=== PATIENT | female | born 1975 | race Caucasian/White ===

== ENCOUNTER → 2016-05-15 | Outpatient (CLI) | payer OTHER ==
[~2016-05-15] MED LIST: ACETTAB14 PO; AMT10 PO; CITA10TA4 PO; ESCI10TA17 PO; GLC/500 PO; IBUP200T80 PO; OXYC5TAB PO; PREG1CAP36 PO; PREG75CA PO
--- NOTE | 2016-05-15 16:06 | DIAGNOSTIC IMAGING REPORT ---
Venous Doppler left leg LEFT VENOUS DOPP LOWER EXT UNILAT CLINICAL HISTORY: ACC LORI PAIN OF LEFT KNEE TECHNIQUE: Venous Doppler COMPARISON STUDY: None FINDINGS: Normal study IMPRESSION: Normal study Electronically signed by: Shay Bell M.D. 05/15/2016 4:05 PM Dictated Date/Time: 05/15/2016 4:04 PM
== END | disposition home or self-care (01) ==
LOC: C.ULTR 15:34
PROVIDERS: ATTEND Orthopaedic Surgery
DX: M25.562 Pain in left knee (principal)

== ENCOUNTER 2016-11-03 03:29 | Emergency (ER) | payer OTHER ==
[~2016-11-03] VITALS: Ht 175.3 cm; Wt 118.3 kg
[~2016-11-03 03:29] MED LIST changes: -IBUP200T80 PO; -PREG1CAP36 PO; -PREG75CA PO
[2016-11-03 03:34] VITALS: TEMP 36.8; Ht 175.3 cm; Wt 118.3 kg
[2016-11-03] MEDS ORDERED: KETOROLAC TROMETHAMINE 60 MG/2 ML VIAL IM STA (03:49)
[2016-11-03] MEDS ORDERED: PREG1CAP36 PO (04:45)
[2016-11-03] MEDS ORDERED: OXYCODONE IR HOME PACK PO ONE (06:45)
--- NOTE | 2016-11-03 07:06 | EMERGENCY ROOM VISIT NOTE ---
History First contact with patient: 03:39 Chief Complaint: LEG PAIN,LEG INJURY Stated Complaint: LEFT LEG PAIN, NERVE DAMAGE FROM PRIOR ACCIDENT History of Present Illness The patient is a 41 year old female who presents to the Emergency Room with complaints of ongoing chronic left leg pain since April 2015 after work- related injury was had surgery before on her back and varicose vein stripping. Patient follows with Dr. Valdivia. Patient was recently placed on Lyrica by the family care for her chronic left leg pain. Patient states the pain has been progressively worse over the past year. Patient states tonight the pain got worse and this is why she came here. Patient tried Advil with no relief of symptoms. She describes the pain as aching, ranging in severity 7 out of 10. Worse with movement and better with rest. No history of DVT or PE. No new trauma. Patient denies chest pain, dyspnea, loss of bowel or bladder control, saddle anesthesia, leg weakness, fevers, chills, abdominal pain, flank pain, urinary symptoms. Patient is able to ambulate. She has an appointment at the end of the month with Dr. Valdivia Review of Systems See HPI for pertinent positives & negatives. A total of 10 systems reviewed and were otherwise negative. Past Medical/Surgical History Medical Problems: (1) Diabetes mellitus (2) Lumbar radiculopathy (3) Lumbar stenosis with neurogenic claudication Surgical Problems: (1) History of lumbar surgery Social History Smoking Status: Former Smoker Drug Use: none Marital Status: Housing Status: lives with family Occupation Status: employed Current/Historical Medications Scheduled Metformin Hcl (Glucophage), 500 MG PO BIDM Pregabalin (Lyrica), 1 CAP PO BID Physical Exam Vital Signs Date Time Temp Pulse Resp B/P (MAP) Pulse Ox O2 Delivery O2 Flow Rate FiO2 11/03/16 06:23 74 18 154/73 95 Room Air 11/03/16 05:40 89 18 160/100 96 Room Air 11/03/16 03:34 36.8 90 18 165/104 95 Room Air Physical Exam VITALS: Vitals are noted on the nurse's note and reviewed by myself. Vital signs stable. GENERAL: Pleasant female, in no acute distress, nondiaphoretic, well-developed well-nourished. SKIN: Capillary reflex less than 2 seconds. HEENT: Normocephalic. PERRLA. EOMI. Nares patent. Mucous membranes moist. Neck is supple without nuchal rigidity. HEART: Regular rate and rhythm without murmurs gallops or rubs. LUNGS: Clear to auscultation bilaterally without wheezes, rales or rhonchi. No retractions or accessory muscle use. ABDOMEN: Positive bowel sounds x 4. Normal tympanic percussion. Soft, nontender, without masses or organomegaly. Holly sign negative. No guarding or rebound tenderness. MUSCULOSKELETAL: No gross musculoskeletal defects. No pedal edema. Left calf tenderness. No thoracic or lumbar tenderness on exam, negative straight leg raise, 5 out of 5 strength throughout NEURO: Patient was alert and oriented to person place and time. Normal sensation to light and sharp touch. Deep tendon reflexes 2+ patella bilaterally. No focal neurological deficits. Medical Decision & Procedures Medications Administered Medications (Trade) Dose Ordered Sig/Juan M Route Start Time Stop Time Status Last Admin Dose Admin Ketorolac Tromethamine (Toradol Inj) 60 mg NOW STAT IM 11/03/16 03:49 11/03/16 03:50 DC 11/03/16 03:55 60 MG ED Course Prior records reviewed and summarized above. Triage Nursing notes reviewed. The patient's history was concerning for swelling and pain in the leg. Differential diagnosis: Etiologies such as acute on chronic leg pain, DVT, musculoskeletal, infection, joint effusion, trauma, lymphedema, idiopathic, CHF, as well as others were entertained.. Physical examination: The physical examination revealed no signs of infection. Neurovascularly intact. ER treatment provided: Toradol On reassessment the patient felt better. Diagnostics interpreted by me: Imaging studies: US no DVT This appears to be consistent with acute on chronic left leg pain. Patient was neurovascularly and neurologically intact. She is well-appearing. She is able to ambulate without difficulties. Case management will help facilitate an earlier appointment for her to follow-up with orthopedic spine. She is advised follow-up family care in a few days or here in the ER sooner for severe pain, numbness, tingling, inability to walk, worsening signs or symptoms or as needed. By the evaluation outlined above emergent etiologies such as DVT, septic joint, trauma, infection, CHF, as well as others were deemed relatively unlikely. The pt informed about the findings as listed above. All questions were answered and pleased with the treatment. Return instructions were outlined and the patient was discharged in stable condition. Referral: The patient was referred back to their primary care physician for follow-up in 2 to 3 days for a recheck of the current condition. Medical Decision As above Medication Reconcilliation Current Medication List: was personally reviewed by me Blood Pressure Screening Patient's blood pressure: Elevated blood pressure Blood pressure disposition: Elevated BP felt to be situational Impression Primary Impression: Leg pain, left Departure Information Dispostion Home / Self-Care Condition GOOD Referrals Finn Bolden D.O. (PCP) Patient Instructions My [facility] Additional Instructions Your blood pressure was high today. Follow-up with your family care. Oxycodone (OxyIR) 5mg: Take 1-2 pills every four hours for breakthrough pain. Avoid alcohol, operating machinery or dangerous equipment, working on ladders or roofs, DRIVING, or situations where being under the influence may be dangerous. It is recommended to use an [id number] stool softener such as Colace, 100mg twice daily while taking this medication to avoid constipation. Ibuprofen(Motrin, Advil) may be used for fever or pain. Use 600mg every six hours as needed. Take with food. Avoid using more than 2400mg in a 24 hour period. Do not use 2400mg per day for more than three consecutive days without physician direction. Prolonged inappropriate use can lead to stomach upset or ulcers. This medication can be taken if you need to drive, work, or perform activities which may be dangerous when taking narcotic pain medication. (AND/OR) Acetaminophen(Tylenol) may be used for fever or pain. Use 1000mg every six hours as needed. Avoid using more than 3000mg in a 24 hour period. This medication can be taken if you need to drive, work, or perform activities which may be dangerous when taking narcotic pain medication. Rest and elevate your leg Continue current medications. Return to the ER immediately for any fevers, inability to walk, numbness, tingling, severe pain, extreme swelling in the extremity or as needed. Follow up with your orthopedic spine doctor in 2-3 days, call for an appointment. Case management will help facilitate an earlier appointment.
--- NOTE | 2016-11-03 07:09 | DIAGNOSTIC IMAGING REPORT ---
ULTRASOUND LEFT LOWER EXTREMITY VENOUS CLINICAL HISTORY: Chronic left leg pain. COMPARISON STUDY: Left lower extremity venous ultrasound dated 05/15/2016. TECHNIQUE: Real-time, grayscale, and color Doppler sonography of the deep veins of the left lower extremity was performed from the inguinal crease to the calf. Compression and augmentation were utilized. FINDINGS: There is no sonographic evidence of deep venous thrombosis identified in the left lower extremity. The common femoral, superficial femoral, and popliteal veins are patent and normally compressible. The greater saphenous vein and the profunda femoris vein at the junction with the common femoral vein are clear. The visualized calf veins are patent. IMPRESSION: There is no sonographic evidence of deep venous thrombosis identified in the left lower extremity. Electronically signed by: Juno Gold M.D. 11/03/2016 7:07 AM Dictated Date/Time: 11/03/2016 7:07 AM
[2016-11-03 07:29] VITALS: BP 156/83; PULSE 76; O2SAT 97
== END 2016-11-03 07:39 | disposition home or self-care (01) ==
LOC: C.EDB 03:31 → C.EDA 07:39
DX: M79.605 Pain in left leg (principal); E11.9 Type 2 diabetes mellitus without complications; M54.16 Radiculopathy, lumbar region; Z98.890 Other specified postprocedural states

== ENCOUNTER 2016-11-14 12:20 | Emergency (ER) | payer OTHER ==
[~2016-11-14] VITALS: Ht 175.3 cm; Wt 116.5 kg
[~2016-11-14 12:20] MED LIST changes: -ACETTAB14 PO; -AMT10 PO; -CITA10TA4 PO; -ESCI10TA17 PO; -OXYC5TAB PO; +PREG1CAP36 PO
[2016-11-14 12:23] VITALS: TEMP 36.9; Ht 175.3 cm; Wt 116.5 kg
--- NOTE | 2016-11-14 12:55 | EMERGENCY ROOM VISIT NOTE ---
History Report prepared by [place]: Marly Noel Under the Supervision of: Dr. Marvin Hein M.D. First contact with patient: 12:32 Chief Complaint: KNEEPAIN Stated Complaint: PAIN IN L KNEE History of Present Illness The patient is a 41 year old female who presents to the Emergency Room with complaints of persistent, worsening left knee pain that began one week ago. She currently rates her discomfort as a 5/10 in severity. The patient states that she saw her PCP today for her knee pain and after her PCP pressed on her leg, she became concerned for a DVT. The patient denies any history of a DVT, but does note a possible family history of dvt. She denies any chance of . The patient denies any recent surgery or recent travel by plan. She does note that she had a long car ride in August. The patient states that her pain began as an ache, noting that it has slowly worsened. She denies getting any x-ray prior to arrival today. 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 The patient denies any injury. She reports chronic back pain and nerve damage from her chronic back issues. Source of History: patient Onset: one week ago Position: knee (left) Symptom Intensity: 5/10 Quality: ache Timing: worsening, other (persistent) Associated Symptoms: + back pain (chronic) Review of Systems See HPI for pertinent positives and negatives. A total of ten systems were reviewed and were otherwise negative. Past Medical & Surgical Medical Problems: (1) Diabetes mellitus (2) Lumbar radiculopathy (3) Lumbar stenosis with neurogenic claudication Surgical Problems: (1) History of lumbar surgery Family History Cancer Diabetes mellitus Hypertension Social History Smoking Status: Former Smoker Smokeless Tobacco Use: No Alcohol Use: none Drug Use: none Marital Status: Housing Status: lives with family Occupation Status: employed Current/Historical Medications Scheduled Metformin Hcl (Glucophage), 500 MG PO BIDM Pregabalin (Lyrica), 75 MG PO BID Scheduled PRN Acetaminophen-Caffeine (Excedrin Tension Headache), 2 TAB PO WK PRN for Pain Ibuprofen (Ibu-200), 2 TAB PO QID PRN for Pain Allergies Coded Allergies: Cephalosporins (Verified Allergy, Intermediate, HIVES, 11/14/16) Amoxicillin (Verified Allergy, Unknown, itching, 11/14/16) Clavulanic Acid (Verified Allergy, Unknown, itching, 11/14/16) Uncoded Allergies: Curare (Adverse Reaction, Unknown, Ineffective- pt awoke during surgery , ) Physical Exam Vital Signs Date Time Temp Pulse Resp B/P (MAP) Pulse Ox O2 Delivery O2 Flow Rate FiO2 11/14/16 15:19 66 17 164/78 98 11/14/16 14:22 66 18 165/81 97 Room Air 11/14/16 12:23 36.9 75 20 171/102 98 Room Air Physical Exam GENERAL: Awake, alert, well-appearing, in no distress HENT: Normocephalic, atraumatic. Oropharynx unremarkable. EYES: Normal conjunctiva. Sclera non-icteric. NECK: Supple. No nuchal rigidity. FROM. No JVD. RESPIRATORY: Clear to auscultation. CARDIAC: Regular rate, normal rhythm. Extremities warm and well perfused. Pulses equal. ABDOMEN: Soft, non-distended. No tenderness to palpation. No rebound or guarding. No masses. RECTAL: Deferred. MUSCULOSKELETAL: Chest examination reveals no tenderness. The back is symmetrical on inspection without obvious abnormality. There is no CVA tenderness to palpation. No joint edema. LOWER EXTREMITIES: Bilateral extremities are symmetric in size, no gross swelling anteriorly in knee, mild tenderness in the posterior aspect of the proximal calf, popliteal fossa, and distal upper leg. NEURO: Normal sensorium. No sensory or motor deficits noted. SKIN: No rash or jaundice noted. Medical Decision & Procedures ER Provider Diagnostic Interpretation: Radiology results as stated below per my review and radiologist interpretation: LEFT KNEE 3 VIEWS CLINICAL HISTORY: pain COMPARISON: None. DISCUSSION: No fractures or dislocations are visualized. There are minor degenerative changes present. There are multiple superficial soft varicosities. IMPRESSION: 1. Minor degenerative change 2. No evidence of fracture 3. Multiple varicosities Electronically signed by: Jacob Hicks M.D. 11/14/2016 1:12 PM Dictated Date/Time: 11/14/2016 1:12 PM ULTRASOUND LEFT VENOUS DOPP LOWER EXT UNILAT CLINICAL HISTORY: Left leg pain and swelling COMPARISON STUDY: May 15, 2016 FINDINGS: Real-time and color flow Doppler imaging were performed. Flow was seen within the femoral, popliteal and calf veins with no intraluminal thrombus demonstrated. The saphenous vein is patent. IMPRESSION: No evidence of left lower extremity DVT Electronically signed by: Jacob Hicks M.D. 11/14/2016 2:15 PM Dictated Date/Time: 11/14/2016 2:14 PM Medications Administered Medications (Trade) Dose Ordered Sig/Juan M Route Start Time Stop Time Status Last Admin Dose Admin Ibuprofen (Motrin Tab) 800 mg STK-MED ONCE .ROUTE 11/14/16 13:40 11/14/16 13:41 DC 11/14/16 13:42 800 MG ED Course 1244: The patient was evaluated in room A10. A complete history and physical exam was performed. 1340: Ordered Motrin Tab 800 mg .route. Medical Decision I reviewed the patient's past medical history, medications, and the nursing notes as described above. The patient's presentation and history were concerning for Knee sprain, strain, fracture. Meniscal injury, DVT, chronic neuropathy. Patient is a 41 y/o woman with a pmhx of neuropathy in the setting of spine surgery presents to ED with >1 week of left knee pain, seen by pcp who sent for duplex concerned for possible DVT. Arrives well-appearing, AFVSS. Mild ttp posterior LLE. BLE symmetric. Xray negative for fx. Duplex negative for dvt. Findings and plan for follow-up d/w patient. Patient agreeable and d/c'd per discharge instructions. Medication Reconcilliation Current Medication List: was personally reviewed by me Blood Pressure Screening Patient's blood pressure: Elevated blood pressure Blood pressure disposition: Elevated BP felt to be situational, Did not require urgent referral Impression Primary Impression: Knee pain Scribe Attestation The scribe's documentation has been prepared under my direction and personally reviewed by me in its entirety. I confirm that the note above accurately reflects all work, treatment, procedures, and medical decision making performed by me. Departure Information Dispostion Home / Self-Care Referrals Finn Bolden, D.O. (PCP) Patient Instructions Knee Pain, My [facility] Additional Instructions Please follow up with your primary care physician in the next 1-3 days for re- evaluation. Your exam, xray, and ultrasound did not show signs of an emergent condition at this time. Acetaminophen or ibuprofen for pain as needed. Return to the emergency department for worsening symptoms as described in the accompanying instructions.
[2016-11-14] MEDS ORDERED: PREG75CA PO (12:58)
[2016-11-14] MEDS ORDERED: ACETTAB14 PO (12:58)
[2016-11-14] MEDS ORDERED: IBUP200T80 PO (12:58)
--- NOTE | 2016-11-14 13:14 | DIAGNOSTIC IMAGING REPORT ---
LEFT KNEE 3 VIEWS CLINICAL HISTORY: pain COMPARISON: None. DISCUSSION: No fractures or dislocations are visualized. There are minor degenerative changes present. There are multiple superficial soft varicosities. IMPRESSION: 1. Minor degenerative change 2. No evidence of fracture 3. Multiple varicosities Electronically signed by: Jacob Hicks M.D. 11/14/2016 1:12 PM Dictated Date/Time: 11/14/2016 1:12 PM
[2016-11-14] MEDS ORDERED: IBUPROFEN 800 MG TAB ONE (13:40)
--- NOTE | 2016-11-14 14:16 | DIAGNOSTIC IMAGING REPORT ---
ULTRASOUND LEFT VENOUS DOPP LOWER EXT UNILAT CLINICAL HISTORY: Left leg pain and swelling COMPARISON STUDY: May 15, 2016 FINDINGS: Real-time and color flow Doppler imaging were performed. Flow was seen within the femoral, popliteal and calf veins with no intraluminal thrombus demonstrated. The saphenous vein is patent. IMPRESSION: No evidence of left lower extremity DVT Electronically signed by: Jacob Hicks M.D. 11/14/2016 2:15 PM Dictated Date/Time: 11/14/2016 2:14 PM
[2016-11-14 15:19] VITALS: BP 164/78; PULSE 66; O2SAT 98
== END 2016-11-14 15:18 | disposition home or self-care (01) ==
LOC: C.EDB 12:21 → C.EDA 15:18
DX: M25.562 Pain in left knee (principal); M54.16 Radiculopathy, lumbar region; G89.29 Other chronic pain; E11.9 Type 2 diabetes mellitus without complications; M48.06 Spinal stenosis, lumbar region; Z87.891 Personal history of nicotine dependence; Z79.84 Long term (current) use of oral hypoglycemic drugs; Z83.3 Family history of diabetes mellitus; Z82.49 Family history of ischemic heart disease and other diseases of the circulatory system

== ENCOUNTER → 2017-02-01 | Day surgery (SDC) | payer OTHER ==
[2017-01-07 15:16] VITALS: BMI 36.0
--- NOTE | 2017-01-07 15:52 | PAT Medication Instructions ---
Service Date Jan 07, 2017. Current Home Medication List Acetaminophen-Caffeine (Excedrin Tension Headache), 2 TAB PO WK PRN for Pain Cetirizine (Zyrtec), 10 MG PO PRN Ibuprofen (Motrin), 800 MG PO PRN PRN for Pain Loperamide Hcl (Imodium), 2 MG PO UD PRN for RN Metformin Hcl (Glucophage), 500 MG PO BIDM Norgestimate-Ethinyl Estradiol (Mononessa), 1 TAB PO QPM Pregabalin (Lyrica), 75 MG PO BID Propranolol (Inderal), 40 MG PO BID Rizatriptan Benzoate (Rizatriptan Benzoate), 5 MG PO UD PRN for RN [Lactaid], 1 TAB PO PRN Medication Instructions For Your Scheduled Surgery - Check with surgeon for instructions: Norgestimate-Ethinyl Estradiol (Mononessa), 1 TAB PO QPM Ibuprofen (Motrin), 800 MG PO PRN PRN for Pain Acetaminophen-Caffeine (Excedrin Tension Headache), 2 TAB PO WK PRN for Pain - Hold the following medications 48 hours prior to surgery: Metformin Hcl (Glucophage), 500 MG PO BIDM - Hold the following medications the morning of surgery: [Lactaid], 1 TAB PO PRN Loperamide Hcl (Imodium), 2 MG PO UD PRN for RN Cetirizine (Zyrtec), 10 MG PO PRN - Take the following medications the morning of surgery with a sip of water: Rizatriptan Benzoate (Rizatriptan Benzoate), 5 MG PO UD PRN for RN (if needed) Propranolol (Inderal), 40 MG PO BID Pregabalin (Lyrica), 75 MG PO BID - Take the following medications as scheduled the night before surgery: [Lactaid], 1 TAB PO PRN(if needed) Rizatriptan Benzoate (Rizatriptan Benzoate), 5 MG PO UD PRN for RN(if needed) Propranolol (Inderal), 40 MG PO BID Pregabalin (Lyrica), 75 MG PO BID Loperamide Hcl (Imodium), 2 MG PO UD PRN for RN(if needed) Cetirizine (Zyrtec), 10 MG PO PRN(if needed) If you have any questions please call us at [phone] or [phone] or [phone]
[2017-01-07 16:04] LABS: BASO % 0.2 %; BASO ABS # 0.02 K/uL (0-0.2); COMPLETE YES; EOS % 1.7 %; HEMATOCRIT 39.8 % (37-47); IG% 0.2 %; LYMPH % 22.2 %; LYMPH ABS # 2.26 K/uL (1.2-3.4); MEAN CELL VOLUME 86.7 fL (80-100); MEAN CORPUSCULAR HEMOGLOBIN 28.1 pg (25-34); MEAN CORPUSCULAR HGB CONC 32.4 g/dl (32-36); MEAN PLATELET VOLUME 8.9 fL (7.4-10.4); MONO % 7.3 %; NEUT % 68.4 %; PLATELET COUNT 290 K/uL (130-400); RED BLOOD COUNT 4.59 M/uL (4.2-5.4); WHITE BLOOD COUNT 10.19 K/uL (4.8-10.8)
--- NOTE | 2017-01-07 16:22 | DIAGNOSTIC IMAGING REPORT ---
CHEST 2 VIEWS ROUTINE HISTORY: Preop. COMPARISON: Chest 09/10/2015. FINDINGS: The lungs are clear. Cardiac silhouette is normal in size. No pleural effusions. No pneumothorax. IMPRESSION: No acute process. Electronically signed by: Zac Herbert M.D. 01/07/2017 4:21 PM Dictated Date/Time: 01/07/2017 4:21 PM
[2017-01-07 16:33] LABS: URINE APPEARANCE CLEAR (CLEAR); URINE BILIRUBIN NEG (NEG); URINE COLOR DK YELLOW; URINE NITRITE NEG (NEG); URINE SPECIFIC GRAVITY 1.029 (1.000-1.030); UROBILINOGEN NEG (NEG); ZZUR CULT IF INDIC CLEAN CATCH NO
[2017-01-07 16:36] LABS: MANUAL MICROSCOPIC REQUIRED? NO; REVIEW REQ? NO
[2017-01-07 16:40] LABS: BUN/CREATININE RATIO 17.3 (10-20); CALCIUM 8.7 mg/dl (8.5-10.1); CREATININE 0.75 mg/dl (0.60-1.20); POTASSIUM 4.2 mmol/L (3.5-5.1)
[~2017-02-01] VITALS: Ht 175.3 cm; Wt 112.4 kg
[~2017-02-01] MED LIST changes: +ACETAMINOPHEN 325 MG TAB PO PRN; +ACETTAB15 PO; +ATROPINE SULFATE 0.1 MG/ML 5ML SYR IV PRN; +BUPIVACAINE/EPINEPHRINE 0.5% MPF 1:200,000 30 ML VIAL ONE; +CETI10TA84 PO; +CLIN300C2 PO; +CLINDAMYCIN 600 MG/54 ML D5W IV SCH; +DEXAMETHASONE SOD INJ 4 MG/ML VIAL ONE; +EpHEDrine SULFATE INJ 50 MG/ML AMP IV PRN; +FENTANYL CITRATE INJ 50 MCG/1 ML 2 ML VIAL IV PRN; +FENTANYL CITRATE INJ 50 MCG/1 ML 2 ML VIAL ONE; +FLOSEAL HEMOSTATIC MATRIX 5ML TOP ONE; +GLYCOPYRROLATE INJ 0.2 MG/ML VIAL ONE; +HYDROmorphone INJ 2 MG/ML SYR/VIAL ONE; +IBUP-1428 PO; +IMD/2 PO; +KETOROLAC TROMETHAMINE 30 MG/ML VIAL IV. PRN; +KETOROLAC TROMETHAMINE 30 MG/ML VIAL ONE; +LACTAID PO; +LACTATED RINGER'S 1000ML IV SCH; +LIDOCAINE HCL 2% 2 ML VIAL (20MG/ML) ONE; +MIDAZOLAM HCL 1 MG/ML 2ML VIAL ONE; +NEOSTIGMINE METHYLSULFATE 1 MG/ML 10ML VIAL ONE; +NORGTAB10 PO; +ONDANSETRON INJ 2 MG/ML 2 ML VIAL IV PRN; +ONDANSETRON INJ 2 MG/ML 2 ML VIAL ONE; +OXYC-57 PO; +OXYCODONE HCL IR 5 MG TAB (IMMEDIATE RELEASE) PO PRN; -PREG1CAP36 PO; +PREG75CA PO; +PROP20TA67 PO; +PROPOFOL IV EMULSION 10 MG/ML 20 ML VIAL IV ONE; +RIZA1TAB10 PO; +ROCURONIUM BROMIDE 10 MG/ML 5 ML VIAL IV ONE
[2017-02-01 06:30] VITALS: BP 176/81; PULSE 66; TEMP 37; O2SAT 96; Ht 175.3 cm; Wt 112.4 kg
--- NOTE | 2017-02-01 07:28 | History & Physical Bridge Note ---
H&P Re-Evaluation Bridge Note: I have examined the patient, reviewed the History & Physical and in the interval since the performance of the History & Physical I have noted the following changes of clinical significance: No changes noted
--- NOTE | 2017-02-01 07:29 | History and Physical ---
History & Physical Date Feb 01, 2017. Chief Complaint Back and leg pain History of Present Illness The patient is a 41 year old female with complaints of chronic back and leg pain Past Medical/Surgical History Medical Problems: (1) Diabetes mellitus (2) Lumbar radiculopathy (3) Lumbar stenosis with neurogenic claudication Surgical Problems: (1) History of lumbar surgery Additional History Hepatic Disease: No Endocrine Disorder: No Kidney Disease: No Hypertension: Yes Heart Disease: No Bleeding Tendencies: No Infectious Diseases: No Allergies Coded Allergies: Cephalosporins (Verified Allergy, Intermediate, HIVES, 01/07/17) Amoxicillin (Verified Allergy, Unknown, itching, 01/07/17) Clavulanic Acid (Verified Allergy, Unknown, itching, 01/07/17) Latex1 -Allergic Contact Dermititis (Verified Allergy, Unknown, SKIN CRACKS, 01/07/17) Hydromorphone (Verified Adverse Reaction, Unknown, PAIN, NAUSEA, MOTION SICKNESS, 02/01/17) PER RECORDS Unclassified Drugs (Verified Adverse Reaction, Unknown, CURARE, 02/01/17) DID NOT WORK Home Medications Scheduled Cetirizine (Zyrtec), 10 MG PO PRN Metformin Hcl (Glucophage), 500 MG PO BIDM Norgestimate-Ethinyl Estradiol (Mononessa), 1 TAB PO QPM Pregabalin (Lyrica), 75 MG PO BID Propranolol (Inderal), 40 MG PO BID [Lactaid], 1 TAB PO PRN Scheduled PRN Acetaminophen-Caffeine (Excedrin Tension Headache), 2 TAB PO WK PRN for Pain Ibuprofen (Motrin), 800 MG PO PRN PRN for Pain Loperamide Hcl (Imodium), 2 MG PO UD PRN for RN Rizatriptan Benzoate (Rizatriptan Benzoate), 5 MG PO UD PRN for RN Physical Examination Skin: warm/dry, no rash Eyes: normal inspection, EOMI, sclerae normal ENT: normal ENT inspection, pharynx normal Head: normocephalic, atraumatic Neck: supple, no adenopathy, trachea midline Respiratory/Chest: lungs clear, normal breath sounds, no respiratory distress Cardiovascular: regular rate, rhythm, no edema, no murmur Abdomen / GI: normal bowel sounds, non tender Back: normal inspection Extremities: normal inspection, normal range of motion Neurologic/Psych: no motor/sensory deficits, alert, normal reflexes, oriented x 3 Diagnosis Chronic back and leg pain Plan of Treatment Spinal cord stimulator trial
[2017-02-01] MEDS: BACITRACIN 50000 UNIT VIAL ONE ×2 (08:13→08:37)
--- NOTE | 2017-02-01 08:45 | Discharge Instructions ---
Discharge Instructions Date of Service Feb 01, 2017. Admission Reason for Admission: Lumbar Post-Laminectomy Syndrome Discharge Discharge Diagnosis / Problem: chronic back and leg pain Discharge Goals Goal(s): Decrease discomfort Activity Recommendations Activity Limitations: per Instructions/Follow-up section Shower/Bathe: keep incision dry . Instructions / Follow-Up Instructions / Follow-Up ACTIVITY RECOMMENDATIONS: SELF CARE INSTRUCTIONS AFTER A LAMINECTOMY 1. No prolonged sitting (less than 30 minutes for the first 3 weeks after surgery). 2. No bending, lifting more than 5 pounds, or twisting (roll like a log when turning in bed). 3. You may shower 3 days after surgery if no drainage from wound. Thoroughly dry wound. Do not soak in the tub. 4. Please walk as much as you can for exercise. Gradually increase the distance that you walk as your endurance increases. 5. You may drive in 7-10 days if you are comfortable and no longer requiring pain medications. SPECIAL CARE INSTRUCTIONS: VERY IMPORTANT TO READ AND REVIEW A. Your surgical incision has been closed with a cosmetic suture under the skin that will dissolve in about 6 weeks. In 14 days, you can use a pair of clean scissors and cut the suture that is left outside of the skin at the ends of your incision. B. Complications are uncommon, but please contact us if you have any signs or symptoms of: 1. wound infection (fever higher than 102.5 degrees F, redness, separation of wound, drainage, or increasing pain from the incision) 2. blood clots in legs (pain, swelling, redness and warmth in legs) 3. urinary tract infection (fever higher than 102.5 degrees, burning upon urination or increased frequency of urination) 4. nerve problems (inability to walk on your toes or heels, numbness, loss of bowel or bladder control) 5. any other symptoms that concern you. C. Please call the office at if you have any concerns or questions about your operation or recovery. MANAGING PAIN AFTER SPINAL SURGERY 1. Narcotic medication is intended for short-term use and will be provided for surgical pain. Surgical pain usually lasts for a period of 4-6 weeks. Narcotic medication includes Percocet, Vicodin, Darvocet, Tylenol #3 or Lortab. 2. Longer-term pain is more appropriately treated with non-narcotic medication such as Tylenol ES. 3. Muscle spasm is not appropriately treated with narcotics. Muscle relaxers such as Soma, Flexeril or Skelaxin can be used along with Tylenol ES. 4. Remember that we all live with some "aches and pains". This is not unusual or uncommon after an injury or as we get older. 5. We will provide appropriate medication within the normal guidelines of their prescribed use. We will also be very cautious and aware of potential abuse and extended duration of patients' medication needs. 6. Please allow 2-3 days to process refills. Prescriptions will not be mailed but must be picked up at the office. FOLLOW UP VISIT: Keep your scheduled follow-up appointment. Any questions, please call the office at . Current Hospital Diet Patient's current hospital diet: Discharge Diet Recommended Diet: Regular Diet Procedures Procedures Performed: Spinal Cord Stimulator Trial Pending Studies Studies pending at discharge: no Medical Emergencies . Who to Call and When: Medical Emergencies: If at any time you feel your situation is an emergency, please call 911 immediately. . Non-Emergent Contact Non-Emergency issues call your: Primary Care Provider . "Provider Documentation" section prepared by Adarsh Valdivia. . VTE Core Measure Inpt VTE Proph given/why not?: Lisa Pelaez, SCD's
--- NOTE | 2017-02-01 08:58 | DIAGNOSTIC IMAGING REPORT ---
SPINE ONE VIEW, ANY LEVEL HISTORY: 41 years-old Female SPINAL CORD STIMULATOR TRIAL status post placement of a spinal study Or device COMPARISON: Lumbar spine MR 12/18/2015 TECHNIQUE: Single spot fluoroscopic image of the spine was obtained utilizing 4.6 seconds fluoroscopy time FINDINGS: Stimulator leads are noted overlying the central spine with distal tip at approximately the T8-T9 level. Exact placement of leads should be confirmed with follow-up standard radiographs. Metallic devices are noted overlying the paraspinal regions bilaterally. IMPRESSION: Fluoroscopic assistance as above. Please see procedural report for further details. The above report was generated using voice recognition software. It may contain grammatical, syntax or spelling errors. Electronically signed by: Beny Momin M.D. 02/01/2017 8:57 AM Dictated Date/Time: 02/01/2017 8:55 AM
--- NOTE | 2017-02-01 09:14 | [facility] Operative Report ---
Operative Report Operative Date Feb 01, 2017. Pre-Operative Diagnosis Lumbar Post-Laminectomy Syndrome Post-Operative Diagnosis Same as preoperative Procedure(s) Performed #1 T10 laminotomy. #2 placement of 16-lead dorsal column stimulator paddle with temporary external leads. Surgeon Dr. Adarsh Valdivia [employer] Surgeon(s) Liberty Gomez PA-C Estimated Blood Loss 25ML Findings None Specimens None per surgeon Description of Procedure Patient was met with preoperatively case discussed all questions addressed. After informed consent obtained patient was taken to the operative suite underwent intubation placed in a prone position the Brice table on top Omega frame. All bony prominences well-padded eyes inspected to ensure no external pressure placed upon them. This point the thoracal lumbar spine was prepped and draped nostril fashion. With the assistance of fluoroscopy identified the T10 T 11 disc space. A midline incision was performed onto an exposing the interlaminar space. Cefotan retractors placed. Verified a position fluoroscopy. At T10 laminotomy was then performed a wide enough to place a 16- lead dorsal constant later paddle. This was inserted up to the bottom of T8. Verified our position with fluoroscopy. I then attached the temporary leads internal them to the right flank. The incisions were irrigated closed with subcutaneous Vicryl and Monocryl for final skin closure. Sterile dressing was placed. Patient we can take PACU stable condition. Please note Liberty Kirk was present at the entire procedure involved in patient positioning complex portions of the surgery and final skin closure. I attest to the content of the Intraoperative Record and any orders documented therein. Any exceptions are noted below.
--- NOTE | 2017-02-01 09:47 | Anesthesiology Progress Note ---
Anesthesia Post Op Note Date & Time Feb 01, 2017 at 09:47 Vital Signs Pain Intensity: 0 Vital Signs Past 12 Hours Date Time Temp Pulse Resp B/P (MAP) Pulse Ox O2 Delivery O2 Flow Rate FiO2 02/01/17 09:30 36.5 73 16 134/67 100 Nasal Cannula 2 02/01/17 09:20 72 16 152/88 100 Nasal Cannula 2 02/01/17 09:10 68 16 166/74 100 Oxymask 5 02/01/17 09:00 78 16 171/87 100 Oxymask 10 02/01/17 08:50 36.6 83 14 165/87 98 Oxymask 10 02/01/17 06:30 37 66 20 176/81 (112) 96 Room Air Notes Mental Status: alert / awake / arousable, participated in evaluation Pt Amnestic to Procedure: Yes Nausea / Vomiting: adequately controlled Pain: adequately controlled Airway Patency, RR, SpO2: stable & adequate BP & HR: stable & adequate Hydration State: stable & adequate Anesthetic Complications: no major complications apparent
[2017-02-01 10:40] VITALS: BP 156/77; PULSE 83; TEMP 36.5; O2SAT 96
== END | disposition home or self-care (01) ==
LOC: C.ACU 05:56
PROVIDERS: ATTEND Orthopaedic Surgery Orthopaedic Surgery of the Spine
DX: M96.1 Postlaminectomy syndrome, not elsewhere classified (principal); E11.9 Type 2 diabetes mellitus without complications; Z79.84 Long term (current) use of oral hypoglycemic drugs; Z79.899 Other long term (current) drug therapy

== ENCOUNTER 2017-02-12 06:53 | Day surgery (SDC) | payer OTHER ==
[~2017-02-12] VITALS: Ht 175.3 cm; Wt 110.0 kg
[~2017-02-12 06:53] MED LIST changes: -ACETAMINOPHEN 325 MG TAB PO PRN; -ATROPINE SULFATE 0.1 MG/ML 5ML SYR IV PRN; -BUPIVACAINE/EPINEPHRINE 0.5% MPF 1:200,000 30 ML VIAL ONE; -CLIN300C2 PO; -DEXAMETHASONE SOD INJ 4 MG/ML VIAL ONE; -EpHEDrine SULFATE INJ 50 MG/ML AMP IV PRN; -FENTANYL CITRATE INJ 50 MCG/1 ML 2 ML VIAL IV PRN; -FENTANYL CITRATE INJ 50 MCG/1 ML 2 ML VIAL ONE; -FLOSEAL HEMOSTATIC MATRIX 5ML TOP ONE; -GLYCOPYRROLATE INJ 0.2 MG/ML VIAL ONE; -HYDROmorphone INJ 2 MG/ML SYR/VIAL ONE; -KETOROLAC TROMETHAMINE 30 MG/ML VIAL IV. PRN; -KETOROLAC TROMETHAMINE 30 MG/ML VIAL ONE; +LACTATED RINGER'S 1000ML 1,000 ML IV SCH; -LACTATED RINGER'S 1000ML IV SCH; -LIDOCAINE HCL 2% 2 ML VIAL (20MG/ML) ONE; -MIDAZOLAM HCL 1 MG/ML 2ML VIAL ONE; -NEOSTIGMINE METHYLSULFATE 1 MG/ML 10ML VIAL ONE; -ONDANSETRON INJ 2 MG/ML 2 ML VIAL IV PRN; -ONDANSETRON INJ 2 MG/ML 2 ML VIAL ONE; -OXYCODONE HCL IR 5 MG TAB (IMMEDIATE RELEASE) PO PRN; -PROPOFOL IV EMULSION 10 MG/ML 20 ML VIAL IV ONE; -ROCURONIUM BROMIDE 10 MG/ML 5 ML VIAL IV ONE
[2017-02-12] MEDS ORDERED: OXYC-57 PO (07:50)
[2017-02-12 07:53] VITALS: BP 145/75; PULSE 63; TEMP 36.5; O2SAT 97; Ht 175.3 cm; Wt 110.0 kg
[2017-02-12] MEDS ORDERED: ATROPINE SULFATE 0.1 MG/ML 5ML SYR IV PRN (08:15)
[2017-02-12] MEDS ORDERED: ONDANSETRON INJ 2 MG/ML 2 ML VIAL IV PRN (08:15)
[2017-02-12] MEDS ORDERED: PROMETHAZINE HCL INJ 12.5 MG in SODIUM CHLORIDE 0.9% 50ML 50 ML IV PRN (08:15)
[2017-02-12] MEDS ORDERED: EpHEDrine SULFATE INJ 50 MG/ML AMP IV PRN (08:15)
[2017-02-12] MEDS ORDERED: FENTANYL CITRATE INJ 50 MCG/1 ML 2 ML VIAL IV PRN (08:15)
[2017-02-12] MEDS ORDERED: HYDROmorphone INJ 1 MG/ML SYR IV PRN (08:15)
[2017-02-12] MEDS ORDERED: FENTANYL CITRATE INJ 50 MCG/1 ML 2 ML VIAL ONE ×2 (08:17→09:34)
[2017-02-12] MEDS ORDERED: MIDAZOLAM HCL 1 MG/ML 2ML VIAL ONE (08:17)
--- NOTE | 2017-02-12 08:36 | History and Physical ---
History & Physical Date Feb 12, 2017. Chief Complaint Chronic back and leg pain History of Present Illness The patient is a 41 year old female with complaints of chronic back and leg pain Past Medical/Surgical History Medical Problems: (1) Diabetes mellitus (2) Lumbar radiculopathy (3) Lumbar stenosis with neurogenic claudication Surgical Problems: (1) History of lumbar surgery Additional History Hepatic Disease: No Endocrine Disorder: No Kidney Disease: No Hypertension: No Heart Disease: No Bleeding Tendencies: No Infectious Diseases: No Allergies Coded Allergies: Cephalosporins (Verified Allergy, Intermediate, HIVES, 02/12/17) Amoxicillin (Verified Allergy, Unknown, itching, 02/12/17) Clavulanic Acid (Verified Allergy, Unknown, itching, 02/12/17) Latex1 -Allergic Contact Dermititis (Verified Allergy, Unknown, SKIN CRACKS, 02/12/17) Hydromorphone (Verified Adverse Reaction, Unknown, PAIN, NAUSEA, MOTION SICKNESS, 02/12/17) PER RECORDS Unclassified Drugs (Verified Adverse Reaction, Unknown, CURARE, 02/12/17) DID NOT WORK Home Medications Scheduled Cetirizine (Zyrtec), 10 MG PO PRN Metformin Hcl (Glucophage), 500 MG PO BIDM Norgestimate-Ethinyl Estradiol (Mononessa), 1 TAB PO QPM Propranolol (Inderal), 40 MG PO BID [Lactaid], 1 TAB PO PRN Scheduled PRN Acetaminophen-Caffeine (Excedrin Tension Headache), 2 TAB PO WK PRN for Pain Ibuprofen (Motrin), 800 MG PO PRN PRN for Pain Loperamide Hcl (Imodium), 2 MG PO UD PRN for RN Oxycodone/Acetaminophen 5MG/325MG (Percocet 5MG/325MG), 1-2 TABLETS PO Q6 PRN for Pain Rizatriptan Benzoate (Rizatriptan Benzoate), 5 MG PO UD PRN for RN Physical Examination Skin: warm/dry, no rash Eyes: normal inspection, EOMI, sclerae normal ENT: normal ENT inspection, pharynx normal Head: normocephalic, atraumatic Neck: supple, no adenopathy, trachea midline Respiratory/Chest: lungs clear, normal breath sounds, no respiratory distress Cardiovascular: regular rate, rhythm, no edema, no murmur Abdomen / GI: normal bowel sounds, non tender Back: normal inspection Extremities: normal inspection, normal range of motion Neurologic/Psych: no motor/sensory deficits, alert, normal reflexes, oriented x 3 Diagnosis Chronic back and leg pain Plan of Treatment Spinal cord stimulator implantation removal of implanted trial
[2017-02-12] MEDS ORDERED: BACITRACIN 50000 UNIT VIAL ONE (09:03)
[2017-02-12] MEDS ORDERED: BUPIVACAINE/EPINEPHRINE 0.5% MPF 1:200,000 30 ML VIAL ONE (09:03)
[2017-02-12] MEDS ORDERED: HYDROmorphone INJ 2 MG/ML SYR/VIAL ONE (09:50)
--- NOTE | 2017-02-12 09:56 | Discharge Instructions ---
Discharge Instructions Date of Service Feb 12, 2017. Admission Reason for Admission: Lumbar Post-Laminectomy Syndrome Discharge Discharge Diagnosis / Problem: chronic back and leg pain Discharge Goals Goal(s): Decrease discomfort Activity Recommendations Activity Limitations: per Instructions/Follow-up section . Instructions / Follow-Up Instructions / Follow-Up ACTIVITY RECOMMENDATIONS: SELF CARE INSTRUCTIONS AFTER A LAMINECTOMY 1. No prolonged sitting (less than 30 minutes for the first 3 weeks after surgery). 2. No bending, lifting more than 5 pounds, or twisting (roll like a log when turning in bed). 3. You may shower 3 days after surgery if no drainage from wound. Thoroughly dry wound. Do not soak in the tub. 4. Please walk as much as you can for exercise. Gradually increase the distance that you walk as your endurance increases. 5. You may drive in 7-10 days if you are comfortable and no longer requiring pain medications. SPECIAL CARE INSTRUCTIONS: VERY IMPORTANT TO READ AND REVIEW A. Your surgical incision has been closed with a cosmetic suture under the skin that will dissolve in about 6 weeks. In 14 days, you can use a pair of clean scissors and cut the suture that is left outside of the skin at the ends of your incision. B. Complications are uncommon, but please contact us if you have any signs or symptoms of: 1. wound infection (fever higher than 102.5 degrees F, redness, separation of wound, drainage, or increasing pain from the incision) 2. blood clots in legs (pain, swelling, redness and warmth in legs) 3. urinary tract infection (fever higher than 102.5 degrees, burning upon urination or increased frequency of urination) 4. nerve problems (inability to walk on your toes or heels, numbness, loss of bowel or bladder control) 5. any other symptoms that concern you. C. Please call the office at if you have any concerns or questions about your operation or recovery. MANAGING PAIN AFTER SPINAL SURGERY 1. Narcotic medication is intended for short-term use and will be provided for surgical pain. Surgical pain usually lasts for a period of 4-6 weeks. Narcotic medication includes Percocet, Vicodin, Darvocet, Tylenol #3 or Lortab. 2. Longer-term pain is more appropriately treated with non-narcotic medication such as Tylenol ES. 3. Muscle spasm is not appropriately treated with narcotics. Muscle relaxers such as Soma, Flexeril or Skelaxin can be used along with Tylenol ES. 4. Remember that we all live with some "aches and pains". This is not unusual or uncommon after an injury or as we get older. 5. We will provide appropriate medication within the normal guidelines of their prescribed use. We will also be very cautious and aware of potential abuse and extended duration of patients' medication needs. 6. Please allow 2-3 days to process refills. Prescriptions will not be mailed but must be picked up at the office. FOLLOW UP VISIT: Keep your scheduled follow-up appointment. Any questions, please call the office at . Current Hospital Diet Patient's current hospital diet: Discharge Diet Recommended Diet: Regular Diet Procedures Procedures Performed: Spinal cord stimulator placement Pending Studies Studies pending at discharge: no Medical Emergencies . Who to Call and When: Medical Emergencies: If at any time you feel your situation is an emergency, please call 911 immediately. . Non-Emergent Contact Non-Emergency issues call your: Primary Care Provider . "Provider Documentation" section prepared by Adarsh Valdivia. . VTE Core Measure Inpt VTE Proph given/why not?: Lisa Pelaez, SCD's
[2017-02-12] MEDS ORDERED: NEOSTIGMINE METHYLSULFATE 1 MG/ML 10ML VIAL ONE (09:57)
[2017-02-12] MEDS ORDERED: GLYCOPYRROLATE INJ 0.2 MG/ML VIAL ONE (09:57)
[2017-02-12] MEDS ORDERED: ONDANSETRON INJ 2 MG/ML 2 ML VIAL ONE (09:57)
[2017-02-12] MEDS ORDERED: ROCURONIUM BROMIDE 10 MG/ML 5 ML VIAL IV ONE (09:57)
[2017-02-12] MEDS ORDERED: PROPOFOL IV EMULSION 10 MG/ML 20 ML VIAL IV ONE (09:57)
[2017-02-12] MEDS ORDERED: DEXAMETHASONE SOD INJ 4 MG/ML VIAL ONE (09:57)
[2017-02-12] MEDS ORDERED: LIDOCAINE HCL 2% 2 ML VIAL (20MG/ML) ONE (09:57)
[2017-02-12] MEDS ORDERED: KETOROLAC TROMETHAMINE 30 MG/ML VIAL ONE (09:57)
--- NOTE | 2017-02-12 09:59 | [facility] Operative Report ---
Operative Report Operative Date Feb 12, 2017. Pre-Operative Diagnosis Chronic back and leg pain Post-Operative Diagnosis Chronic back and leg pain Procedure(s) Performed #1 removal of temporary spinal cord stimulator leads. #2 implantation of rechargeable spinal cord stimulator battery Surgeon Dr. Valdivia Temperature Inspector Surgeon(s) Dick Rodas PA-C Estimated Blood Loss 10 cc Findings None Specimens A: explanted hardware Description of Procedure Patient was met with preoperatively case discussed all questions addressed. After informed consent obtained patient was taken to the operative suite underwent intubation placed in a prone position the Brice table on top Omega frame. All bony prominences well-padded eyes inspected to ensure no external pressure placed upon them. This point the thoracal lumbar spine was prepped and draped nostril fashion. The previous laminotomy site at T10 was then exposed. The temporary leads removed. Then created a pocket over the left flank. Sharp dissection was performed onto an exposing the subcutaneous fat and tissue. A pocket was created for the battery. A trocar was then placed from the laminotomy site to the battery site in the leads were passed attached to the battery. It was tested for efficacy. The battery was then placed within the pocket. Incisions were copiously irrigated with interbody solution. Then closed with Vicryl subcutaneous cutaneously 4 Monocryl for final skin closure. Steri-Strips sterile dressings placed. Patient we can take PACU stable condition. Please note Chemo record was present at the entire procedure involved in patient positioning complex portions of the surgery and final skin closure. I attest to the content of the Intraoperative Record and any orders documented therein. Any exceptions are noted below.
[2017-02-12] MEDS ORDERED: ACETAMINOPHEN 325 MG TAB PO PRN (10:00)
[2017-02-12] MEDS ORDERED: OXYCODONE HCL IR 5 MG TAB (IMMEDIATE RELEASE) PO PRN (10:00)
[2017-02-12] MEDS ORDERED: KETOROLAC TROMETHAMINE 30 MG/ML VIAL IV. PRN (10:00)
[2017-02-12 12:00] VITALS: BP 147/72; PULSE 72; TEMP 36.8; O2SAT 98
--- NOTE | 2017-02-12 12:40 | Anesthesiology Progress Note ---
Anesthesia Post Op Note Date & Time Feb 12, 2017 at 12:39 Vital Signs Pain Intensity: 3 Vital Signs Past 12 Hours Date Time Temp Pulse Resp B/P (MAP) Pulse Ox O2 Delivery O2 Flow Rate FiO2 02/12/17 12:00 36.8 72 18 147/72 98 Room Air 02/12/17 11:30 73 18 119/58 94 Room Air 02/12/17 11:00 36.5 72 20 142/60 92 Room Air 02/12/17 10:48 64 21 93 02/12/17 10:48 65 21 02/12/17 10:47 61 20 92 02/12/17 10:47 60 20 02/12/17 10:46 123/69 02/12/17 10:42 63 18 93 02/12/17 10:42 36.4 63 21 123/69 (86) 96 Room Air Oxymask 02/12/17 10:42 62 18 02/12/17 10:41 120/68 02/12/17 10:37 63 21 94 02/12/17 10:37 64 21 02/12/17 10:36 119/69 02/12/17 10:34 70 17 100 02/12/17 10:34 68 17 02/12/17 10:33 67 20 02/12/17 10:33 66 20 99 02/12/17 10:31 141/73 02/12/17 10:28 71 21 100 02/12/17 10:28 69 21 02/12/17 10:26 132/64 02/12/17 10:23 63 21 100 02/12/17 10:23 65 21 02/12/17 10:21 120/66 02/12/17 10:18 75 13 02/12/17 10:18 74 13 100 02/12/17 10:16 146/82 02/12/17 10:14 132/81 02/12/17 10:13 19 02/12/17 10:13 19 02/12/17 10:13 36.6 60 14 132/81 (98) 100 Oxymask 10 02/12/17 07:53 36.5 63 18 145/75 (98) 97 Room Air Notes Mental Status: alert / awake / arousable, participated in evaluation Pt Amnestic to Procedure: Yes Nausea / Vomiting: adequately controlled Pain: adequately controlled Airway Patency, RR, SpO2: stable & adequate BP & HR: stable & adequate Hydration State: stable & adequate Anesthetic Complications: no major complications apparent
== END 2017-02-12 12:05 | disposition home or self-care (01) ==
LOC: C.ACU 06:53
PROVIDERS: ATTEND Orthopaedic Surgery Orthopaedic Surgery of the Spine
DX: G89.29 Other chronic pain (principal); M48.062 Spinal stenosis, lumbar region with neurogenic claudication; E11.51 Type 2 diabetes mellitus with diabetic peripheral angiopathy without gangrene; Z79.84 Long term (current) use of oral hypoglycemic drugs; Z79.899 Other long term (current) drug therapy; K58.9 Irritable bowel syndrome, unspecified; K21.9 Gastro-esophageal reflux disease without esophagitis; M19.90 Unspecified osteoarthritis, unspecified site; F32.9 Major depressive disorder, single episode, unspecified; E66.9 Obesity, unspecified; G43.909 Migraine, unspecified, not intractable, without status migrainosus; Z68.36 Body mass index [BMI] 36.0-36.9, adult; Z87.891 Personal history of nicotine dependence

== ENCOUNTER 2017-05-10 04:08 | Emergency (ER) | payer OTHER ==
[~2017-05-10] VITALS: Ht 172.7 cm; Wt 114.0 kg
[~2017-05-10 04:08] MED LIST changes: -CLINDAMYCIN 600 MG/54 ML D5W IV SCH; -LACTATED RINGER'S 1000ML 1,000 ML IV SCH; -PREG75CA PO
[2017-05-10 04:11] VITALS: TEMP 36.9; Ht 172.7 cm; Wt 114.0 kg
[2017-05-10] MEDS ORDERED: PROP1TAB PO (04:35)
[2017-05-10] MEDS ORDERED: CYCL10TA6 PO (04:40)
--- NOTE | 2017-05-10 04:41 | EMERGENCY ROOM VISIT NOTE ---
History Report prepared by [place]: Aguilar Iglesias Under the Supervision of: Dr. Tosha Tejada D.O. First contact with patient: 04:16 Chief Complaint: BACK PAIN Stated Complaint: BACK PAIN History of Present Illness The patient is a 41 year old female who presents to the Emergency Room with complaints of constant right-sided back pain beginning at 0000 today. The patient states that she had to rest on a table today at work in order to give her back a rest. She notes that when she tried to get up, she began experiencing pain and could stand. She reports that she turned her stimulator up with mild relief of her pain. The patient states that she did not have any new back trauma today and has not had similar symptoms before. She denies any new leg weakness, abdominal pain, and bladder/urine incontinence. She notes that she has a previous history of four back surgeries and has persistent back problems. Source of History: patient Onset: 0000 today Position: back (right-sided) Timing: constant Modifying Factors (Relieving): other (turning up her stimulator) Associated Symptoms: No abdominal pain, No weakness (leg) Note: The patient also denies any bladder/urine incontinence. Review of Systems See HPI for pertinent positives & negatives. A total of 10 systems reviewed and were otherwise negative. Past Medical & Surgical Medical Problems: (1) Diabetes mellitus (2) Lumbar radiculopathy (3) Lumbar stenosis with neurogenic claudication Surgical Problems: (1) History of lumbar surgery Family History Cancer Diabetes mellitus Hypertension Social History Smoking Status: Current Some Day Smoker Alcohol Use: none Drug Use: none Marital Status: Housing Status: lives with family Occupation Status: employed Current/Historical Medications Scheduled Cyclobenzaprine Hcl (Flexeril), 10 MG PO TID Metformin Hcl (Glucophage), 500 MG PO BIDM Norgestimate-Ethinyl Estradiol (Mononessa), 1 TAB PO QPM Propranolol (Inderal), 60 MG PO BID Scheduled PRN Rizatriptan Benzoate (Rizatriptan Benzoate), 5 MG PO UD PRN for Migraine Allergies Coded Allergies: Cephalosporins (Verified Allergy, Intermediate, HIVES, 05/10/17) Amoxicillin (Verified Allergy, Unknown, itching, 05/10/17) Clavulanic Acid (Verified Allergy, Unknown, itching, 05/10/17) Latex1 -Allergic Contact Dermititis (Verified Allergy, Unknown, SKIN CRACKS, 05/10/17) Hydromorphone (Verified Adverse Reaction, Unknown, PAIN, NAUSEA, MOTION SICKNESS, 05/10/17) PER RECORDS Unclassified Drugs (Verified Adverse Reaction, Unknown, CURARE, 05/10/17) DID NOT WORK Physical Exam Vital Signs Date Time Temp Pulse Resp B/P (MAP) Pulse Ox O2 Delivery O2 Flow Rate FiO2 05/10/17 04:53 86 18 140/84 98 05/10/17 04:11 36.9 92 18 136/77 96 Room Air Physical Exam Back: Moderate muscle spasm in right lumbar paraspinous muscles L3-L5. Heart: Regular rate and rhythm. There is a normal S1 and S2 with no murmurs, clicks, or gallops appreciated. Lungs: Clear to auscultation bilaterally with no wheezes, rales, or rhonchi. Abdomen: Soft, completely nontender, nondistended, with good bowel sounds. There are no palpable pulsatile masses or hepatosplenomegaly. There is no guarding, rigidity, or rebound noted. Extremities: No evidence of cyanosis, clubbing, or edema. There are easily palpable peripheral pulses. Skin: warm and dry with good turgor and no rashes. Medical Decision & Procedures Medications Administered Medications (Trade) Dose Ordered Sig/Juan M Route Start Time Stop Time Status Last Admin Dose Admin Cyclobenzaprine HCl (FLEXERIL 10MG Home Pack) 1 homepack UD ONCE PO 05/10/17 04:45 05/10/17 04:46 DC 05/10/17 04:53 1 HOMEPACK ED Course 0434: Past medical records reviewed. The patient was evaluated in room A11. A complete history and physical exam was performed. 0444: The patient was given a Flexeril home pack to use for the muscle spasm. Medical Decision The patient is a 41 year old female who presents to the Emergency Room with complaints of constant right-sided back pain beginning at 0000 today. Differential diagnoses include: muscle spasm, low back pain, acute disc herniation, and cauda equina syndrome. This is a 41-year-old female patient with an extensive history of back surgeries. The patient states that she suddenly had discomfort in her right low back. There was no specific injury. She increased the frequency of her neurostimulator to get some relief while at work. She was concerned about the increased pain in light of her significant past medical history and spinal surgeries. On exam, the pain for the patient was clearly over the right lateral lumbar paraspinous muscles with significant muscle spasm in that area. It was easily reproducible. There was no midline tenderness or radicular symptoms. I have given the patient a prescription for Flexeril and I have asked her to follow-up with Dr. Valdivia who is her surgeon. Blood Pressure Screening Patient's blood pressure: Elevated blood pressure Blood pressure disposition: Elevated BP felt to be situational Impression Primary Impression: Lumbar back pain Scribe Attestation The scribe's documentation has been prepared under my direction and personally reviewed by me in its entirety. I confirm that the note above accurately reflects all work, treatment, procedures, and medical decision making performed by me. Departure Information Dispostion Home / Self-Care Prescriptions Cyclobenzaprine Hcl (FLEXERIL) 10 Mg Tab 10 MG PO TID, #21 TAB Prov: Tosha Tejada D.O. 05/10/17 Referrals Finn Bolden D.OPeg (PCP) Forms HOME CARE DOCUMENTATION FORM, IMPORTANT VISIT INFORMATION Patient Instructions My [facility] Additional Instructions Rest. Apply heat to the right side of your back Use muscle relaxer at night time. talk to Dr. Valdivia about neuro stimulator
[2017-05-10] MEDS ORDERED: FLEXERIL HOME PACK 10 MG VIAL PO ONE (04:45)
[2017-05-10 04:53] VITALS: BP 140/84; PULSE 86; O2SAT 98
== END 2017-05-10 04:54 | disposition home or self-care (01) ==
LOC: C.EDB 04:09 → C.EDA 04:54
DX: M54.5 Low back pain (principal); M62.830 Muscle spasm of back; E11.9 Type 2 diabetes mellitus without complications; Z98.890 Other specified postprocedural states; F17.200 Nicotine dependence, unspecified, uncomplicated; Z79.84 Long term (current) use of oral hypoglycemic drugs; Z88.1 Allergy status to other antibiotic agents; Z91.040 Latex allergy status; Z88.6 Allergy status to analgesic agent; Z80.9 Family history of malignant neoplasm, unspecified; Z83.3 Family history of diabetes mellitus; Z82.49 Family history of ischemic heart disease and other diseases of the circulatory system